=== PATIENT | male | born 1975 | race Caucasian/White ===

== ENCOUNTER → 2021-07-21 | Outpatient (CLI) | payer BC ==
[2021-07-21 10:42] LABS: HCT 48.4 % (39.6-50.0); HGB 15.4 g/dL (13.0-17.0); MCH 26.3 pg (27.0-32.0); MCHC 31.8 g/dL (32.0-37.0); MCV 82.6 fL (80.0-97.0); NRBC Per 100 WBC 0 /100 WBCS (0.0-0.0); Platelet Count 231 X 10*3/uL (140-440); RBC 5.86 X 10*6/uL (4.40-5.60); RDW 13.5 % (11.5-14.5); WBC 6.61 X 10*3/uL (4.50-10.00)
[2021-07-21 10:52] LABS: African American GFR (CKD) 106.3 (60.0-200.0); Anion Gap 7.8 mmol/L (10.00-18.00); Blood Urea Nitrogen 12.1 mg/dL (9.0-27.0); Carbon Dioxide 26.6 mmol/L (20.0-27.5); Non-African American GFR(CKD) 91.7 (60.0-200.0); Potassium 4.9 mmol/L (3.5-5.5)
== END | disposition home or self-care (01) ==
LOC: LABPAT 07:49
PROVIDERS: ATTEND Internal Medicine Clinical Cardiac Electrophysiology
DX: Z01.812 Encounter for preprocedural laboratory examination (principal); I48.0 Paroxysmal atrial fibrillation; Z20.822 Contact with and (suspected) exposure to COVID-19
CPT/HCPCS: 80051; 82565; 84520; 85027; U0003; C9803; U0005

== ENCOUNTER 2021-07-28 12:22 | Day surgery (SDC) | payer BC ==
[2021-07-26 16:20] VITALS: BMI 35.2
[~2021-07-28 12:22] MED LIST: LACTATED RINGERS 1,000 ML IV SCH; SODIUM CHLORIDE 0.9% 1,000 ML IV SCH
[2021-07-28] MEDS ORDERED: PROPOFOL 10 MG/ML 20 ML VIAL IV ONE (15:24)
[2021-07-28] MEDS ORDERED: SUCCINYLCHOLINE CHLORIDE 100 MG/5 ML SYR IV ONE (15:24)
[2021-07-28] MEDS ORDERED: ISOPROTERENOL 250 MCG/1.25 ML SYR IV ONE (15:24)
[2021-07-28] MEDS ORDERED: HYDROmorphone (PF) 1 MG/ML ONE (15:24)
[2021-07-28] MEDS ORDERED: fentaNYL (PF) 50 MCG/ML 2 ML AMP ONE (15:24)
[2021-07-28] MEDS ORDERED: MIDAZOLAM 2 MG/2 ML VIAL ONE (15:24)
[2021-07-28] MEDS ORDERED: LIDOCAINE 2% INJ 20 MG/ML (2 ML VIAL) ONE (15:24)
[2021-07-28] MEDS ORDERED: HEPARIN SODIUM,PORCINE 10,000 UNIT/ML 1 ML VIAL ONE (15:24)
[2021-07-28] MEDS ORDERED: LIDOCAINE 1% PF 10 MG/ML (5 ML AMP) SQ ONE (16:08)
[2021-07-28] MEDS ORDERED: IOPAMIDOL-370 100ML BTL INJ ONE (17:36)
[2021-07-28] MEDS ORDERED: HEPARIN SOD,PORK IN 0.45% NACL 25,000 UNIT in 0.45% NACL 1 250ML.BAG IV ONE (17:49)
--- NOTE | 2021-07-28 17:58 | P.EPPROC ---
- EP Procedure Note Electrophysiology Procedure Note: This is Dr. Simons dictating an H/P on this patient The patient was interviewed and examined IMPRESSION / ASSESSMENT: Paroxysmal atrial fibrillation with RVR up to 174 beats a minute on the event monitor Increasing episodes increasing frequency and duration Hypertension, well controlled Obstructive sleep apnea PLAN: Pulmonary vein isolation for management of atrial fibrillation Continue Xarelto HPI Patient has a history of palpitations. These palpitations or increased in frequency and duration and his event monitor most recently shows A. fib with RVR Heart rates up to 174 beats a minute He has a history of sleep apnea Is unable to tolerate the CPAP mask He has hypertension, well controlled ROS: No fever chills or rigors, no cough, phlegm or expectoration, no nausea, vomiting or diarrhea, no hematuria, dysuria, no musculoskeletal complaints, no strokes or seizures, no skin lesions. EXAMINATION: 98.3F, pulse rate in the 70s, blood pressure 150-90 mmHg Breath sounds are clear no rhonchi no crackles Heart sounds S1 and S2 are normal No JVD No lower extremity edema Abdomen is soft REVIEW OF LABS, ECG & MEDICAL DATA Medications include flecainide, lisinopril, metoprolol succinate and xarelto He took Xarelto to 20 mg this morning Negative for coronavirus
[2021-07-28] MEDS ORDERED: ACETAMINOPHEN IV (For NPO) 1,000 MG in EMPTY BAG 1 BAG IVPB ONE (18:07)
[2021-07-28] MEDS ORDERED: ACETAMINOPHEN TAB 325 MG TAB PO PRN (18:07)
--- NOTE | 2021-07-28 18:07 | P.EPPROC ---
- EP Procedure Note Electrophysiology Procedure Note: PROCEDURE A. fib ablation/PVI DIAGNOSIS Atrial fibrillation, symptomatic, RESULT No left atrial appendage mass seen on intracardiac echo normal LV and RV size and function Successful A. fib ablation/pulmonary vein isolation of all veins using cryo- ablation Left atrial septal ablation Complete entrance block in all 4 veins confirmed Very large left common vein requiring segmental isolation Large right superior and right inferior veins No evidence for phrenic nerve injury Esophageal deflection YES PROCEDURE DETAILS Patient was brought to the EP lab in a fasting state after obtaining written informed consent. Procedure performed under general anesthesia Esophagus was intubated. Esophageal temperature monitoring with circa catheter. Esophageal deflection with an endoscope to avoid hypothermia of the esophagus. After initial muscle relaxant use, muscle relaxants were not given thereafter in order to assess phrenic nerve during procedure. Patient prepped and draped as per protocol Cryo ablation-set up with standard preparation of the cryoablation tools done. Femoral Venous access obtained on the right and left groins and sheaths placed Diagnostic catheters for the high right atrium, phrenic nerve stimulation and pacing, His bundle, coronary sinus placed Intracardiac echo catheter placed. Long sheath placed in the right atrium Left and right transseptal catheterization performed under intracardiac echo guidance. Intravenous heparin with aCT above 300 Later, catheter positioning and balloon positioning in the left atrium and pulmonary veins, under intracardiac echo guidance Diagnostic EP study with coronary sinus pacing and recording Baseline measurements: Sinus cycle length 831 ms, NJ interval 138 ms QRS 93 and QT 369 ms H 39 HV 52 ms Sinus node recovery times at 600 540 ms were 1419, 1458 and 1379 ms. Corresponding corrected sinus node recovery times abnormal AV node Wenckebach block 310 ms Later Isuprel wide open infusion Burst stimulation from the coronary sinus from 400 ms down to 200 ms No inducible atrial fibrillation Transseptal catheterization performed RA pressure 15/9/12 LA pressure 22/6/14 Transseptal catheterization performed with standard sheath. The cryoablation sheath was then placed with an over the wire exchange without any acute complications. The cryoablation balloon was placed in the office of each pulmonary vein and all 4 pulmonary veins were isolated. IV dye was injected to confirm occlusion. Goal: achieve complete occlusion of the pulmonary vein, achieve -30 degrees C at 30 seconds and achieve -40 degrees C at 60 seconds and a time to effect of less than 60 seconds. If not, the balloon was repositioned to obtain this result After completion of Cryoblation with durations from 180-240 seconds, entrance block was confirmed with the Attain circular catheter in a roving fashion around the antrum of the pulmonary veins Phrenic nerve pacing was performed from the SVC, right innominate vein area and diaphragm voltage was monitored. Diaphragmatic contractions were also monitored manually for strength of contraction. At the end of the procedure the Achieve catheter was once again used to check for entrance block Phrenic nerve stimulation was performed to confirm diaphragmatic stimulation the end of the procedure Cine fluoroscopy was performed at the very end of the procedure to confirm movement of both diaphragms with inspiration and expiration The left sided veins. Common. The common trunk was very large. Very thick left atrial fibrous around the os of this pulmonary vein Initially delayed disappearance of PVCs Therefore segmental isolation of the common pulmonary venous trunk was performed. Complete isolation of PVPs This part of the cryoablation to come much longer time than usual since multiple segment lesions had to be applied around the antrum of this very large vein The right superior pulmonary vein was large and once again delayed disappearance of. Please noted Segmental isolation, anteriorly and posteriorly Ablation of the septum performed, in between the right superior and right inferior pulmonary veins Subsequently the right inferior pulmonary vein was isolated At the end of the procedure the patient was extubated Venous sheaths were removed and hemostasis assured with a closure device PROCEDURES PERFORMED Diagnostic EP study CS pacing and recording Left and right transseptal catheterization Catheter the mapping of the tachycardia Intracardiac echocardiography Pulmonary vein isolation with transseptal and comprehensive EPS, [id number] Drug infusion, +[id number] Linear ablation, left atrium, +[id number]
[2021-07-28] MEDS ORDERED: SODIUM CHLORIDE 0.9% 250 ML IV ONE (18:14)
[2021-07-28] MEDS ORDERED: FLECAINIDE 50 MG TAB PO SCH (21:00)
[2021-07-28] MEDS ORDERED: lisinopriL 10 MG TAB PO SCH ×2 (21:00→21:30)
[2021-07-28] MEDS: FLECAINIDE 50 MG TAB PO SCH (22:00)
[2021-07-29] MEDS: ACETAMINOPHEN TAB 325 MG TAB PO PRN ×2 (05:00→10:01)
[2021-07-29 08:03] VITALS: RESP 18
[2021-07-29] MEDS: RIVAROXABAN 20 MG TAB PO SCH ×2 (08:19→09:57)
[2021-07-29] MEDS: FLECAINIDE 50 MG TAB PO SCH (08:20)
[2021-07-29] MEDS ORDERED: METOPROLOL SUCCINATE (ER) 50 MG TAB.ER.24H PO SCH (09:00)
[2021-07-29] MEDS ORDERED: COLCHICINE 0.6 MG EACH PO SCH (13:15)
[2021-07-29 14:58] VITALS: BP 102/61; PULSE 76; TEMP 98.9
--- NOTE | 2021-07-30 15:15 | P.DS ---
Providers Attending physician: Delvis Simons Primary care physician: Alma Jarrell MD Assessment: Patient is stable for cardio vascular standpoint after cryoablation of the pulmonary veins He does have pleuritic chest discomfort but no pericardial rub Blood pressure 106/72 mmHg also rate in the 70s afebrile Normal heart sounds normal S1 normal S2 no rub no gallops no murmurs Lungs are clear auscultation no rhonchi no crackles Impression Paroxysmal atrial fibrillation Status post cryoablation the pulmonary veins Plan Discharge home today Colchicine for one week Continue anticoagulation other cardiac medications Follow-up the week Patient Condition at Discharge: Fair Plan - Discharge Summary Discharge Rx Participant: Yes New Discharge Prescriptions: Continue Metoprolol Succinate [Toprol XL] 50 mg PO DAILY lisinopriL [Zestril] 10 mg PO HS Rivaroxaban [Xarelto] 20 mg PO DAILY Flecainide [Tambocor] 50 mg PO Q12HR Discharge Medication List Flecainide [Tambocor] 50 mg PO Q12HR 07/26/21 [History] Metoprolol Succinate [Toprol XL] 50 mg PO DAILY 07/26/21 [History] Rivaroxaban [Xarelto] 20 mg PO DAILY 07/26/21 [History] lisinopriL [Zestril] 10 mg PO HS 07/26/21 [History] Follow up Appointment(s)/Referral(s): Delvis Simons MD [STAFF PHYSICIAN] - 1 Week (Follow-up with Lashay Penn in a week) Patient Instructions/Handouts: Chest Pain (DC), Heart Catheterization (DC) Activity/Diet/Wound Care/Special Instructions: Post EP study - Ablation instructions 1. Keep access sites dry for 2 days. 2. No heavy lifting or straining for 2 days. 3. Avoid bending the hips repeatedly for 2 days. 4. You may go up and down stairs slowly Call if the following is noted 1. Bleeding, increasing swelling or pain at the access sites. 2. Increasing chest discomfort, especially upon taking a deep breath. 3. Increasing shortness of breath, at rest or with exertion. 4. Undue cough / phlegm 5. Difficulty or pain while swallowing. 6. Pain or change in color in the extremities. 7. Fever, chills, rigors. 8. Increasing headache or neurologic symptoms. 9. Dizziness, fainting, palpitations Continue all cardiac medications including xarelto Discharge Disposition: HOME SELF-CARE
== END 2021-07-29 15:53 | disposition home or self-care (01) ==
LOC: CATHEP 12:22 → 6NMEDSUR 17:55 → CATHEP 07-29 15:53
PROVIDERS: ATTEND Internal Medicine Clinical Cardiac Electrophysiology
DX: I48.0 Paroxysmal atrial fibrillation (principal); I10 Essential (primary) hypertension; G47.33 Obstructive sleep apnea (adult) (pediatric); R07.89 Other chest pain; Z79.01 Long term (current) use of anticoagulants; Z79.899 Other long term (current) drug therapy; Z20.822 Contact with and (suspected) exposure to COVID-19
CPT/HCPCS: 93623; 93656; 93657; 87635; C1894 ×2; C1769 ×4; C1760; C1730 ×2; C1759; C1893; C1733; C1766; J2250; J1644 ×2; J2001 ×2; J3010; J1170; J0330; J2704; Q9967